=== PATIENT | female | born 1955 | race African-American/Black ===

== ENCOUNTER 2017-04-02 15:33 | Inpatient (IN) | payer BC ==
[~2017-04-02] VITALS: Ht 160 cm; Wt 92.1 kg
--- NOTE | ~2017-04-02 | EKG ---
[address] [address] ELECTROCARDIOGRAM REPORT Name: BARRETT DE LA VEGA Room #: 170-11 ADM IN .R.#: [id number] Admission: 04/02/17 Attend Phys: James Galvez MD Discharge: Date of : 55 Report #: [id number] THIS REPORT FOR: //name// [facility] ED Test Date: 2017-04-02 Test Time: 15:40:03 Pat Name: BARRETT DE LA VEGA Department: Room: 170 Gender: F Residential Treatment Counselor: MZOOK : 1955 Requested By: Randall Torres Order Number: [id number] MD: Jose Elias Richey Measurements Intervals [place] Rate: 66 P: 40 ND: 176 QRS: 33 QRSD: 91 T: 45 QT: 452 QTc: 474 Interpretive Statements Sinus rhythm Borderline T abnormalities, anterior leads Compared to ECG 12/23/2013 21:14:34 Poor R-wave progression no longer present T-wave abnormality still present Electronically Signed On 04-02-2017 23:26:23 [employer] by Jose Elias Richey [email or web address] <ELECTRONICALLY SIGNED> By: Jose Elias Richey MD 04/02/17 [id number] Jose Elias Richey MD /EPI
[~2017-04-02 15:33] MED LIST: AROMASIN25 MG PO; CALCIUM 600 +1 EAC1 PO; CELEXA20 MG PO; CENTRUM SILVER1 EAC4 PO; COUMADIN 5 MG TA5 M1 PO; ENOXAPARIN80 MG/0.1 SUBQ; LISINOPRIL10 MG PO; LOPRESSOR50 PO; MAXZIDE-25 MG1 EACH PO; NORVASC10 MG PO; PERCOCET PO; PROTONIX40 M1 PO; TRAMADOL 50 MG50 MG PO; VITAMIN B-12500 MCG PO; VITAMIN D-32000 UNIT PO
[2017-04-02 15:43] VITALS: BP 114/72
[2017-04-02] MEDS ORDERED: ANTIVERT25 MG PO (15:54)
[2017-04-02] MEDS ORDERED: DYAZIDE 37.5-21 EACH PO (15:55)
[2017-04-02] MEDS ORDERED: XANAX 0.25 MG0.25 MG PO (15:56)
[2017-04-02 16:11] LABS: HEMATOCRIT 38.4 % (37.0-47.0); MCH 28.8 pg (26.0-34.0); MCHC 33.8 g/dL (28.0-37.0); MCV 85.1 fL (80.0-100.0); PLATELET COUNT 253 thou/uL (150-400); RBC 4.51 mil/uL (4.20-5.00); RDW 14.8 % (10.5-14.5); WBC 6.3 thou/uL (4.0-11.0)
[2017-04-02 16:18] LABS: ANION GAP 8 mmol/L (7-16); BUN 13 mg/dL (7-18); CALCIUM 9.5 mg/dL (8.5-10.1); CHLORIDE 103 mmol/L (98-107); CO2 28 mmol/L (21-32); GLUCOSE 107 mg/dL (74-106); POTASSIUM 3.5 mmol/L (3.5-5.1); SODIUM 139 mmol/L (136-145)
[2017-04-02 16:27] LABS: TROPONIN-I < 0.04 ng/mL (<0.06)
[2017-04-02 16:29] LABS: ABSOLUTE NEUTROPHILS 3.6 thou/uL (1.4-8.2)
[2017-04-02 18:40] LABS: URINE BILIRUBIN NEGATIVE (Negative); URINE BLOOD NEGATIVE (Negative); URINE CLARITY CLEAR; URINE COLOR YELLOW; URINE GLUCOSE-RANDOM* NEGATIVE (Negative); URINE KETONES NEGATIVE (Negative); URINE LEUKOCYTES-REFLEX NEGATIVE (Negative); URINE NITRITE-REFLEX NEGATIVE (Negative); URINE PROTEIN (DIPSTICK) NEGATIVE (Negative); URINE UROBILINOGEN 0.2 E.U./dl (0.2-1.0)
[2017-04-02] MEDS ORDERED: HYDROCODONE-AP1 EAC6 PO (19:25)
[2017-04-02] MEDS ORDERED: NORFLEX100 MG PO (19:25)
[2017-04-02] MEDS ORDERED: SENNA-DOCUSATE1 EACH PO (19:25)
[2017-04-03 00:05] LABS: INR 4.3; PROTIME 42.7 Seconds (9.3-11.4)
[2017-04-03 11:40] VITALS: BP 94/60
[2017-04-03 12:00] VITALS: BP 90/61
[2017-04-03 12:18] VITALS: BP 96/42
[2017-04-03 16:00] VITALS: BP 114/76
[2017-04-03 20:00] VITALS: BP 106/67
[2017-04-04 04:06] VITALS: BP 99/64
[2017-04-04 06:37] LABS: HEMATOCRIT 35.4 % (37.0-47.0); HEMOGLOBIN 11.8 gm/dL (12.0-15.0); MCH 28.5 pg (26.0-34.0); MCHC 33.2 g/dL (28.0-37.0); MCV 85.7 fL (80.0-100.0); PLATELET COUNT 227 thou/uL (150-400); RBC 4.13 mil/uL (4.20-5.00); RDW 14.7 % (10.5-14.5); WBC 5.2 thou/uL (4.0-11.0)
[2017-04-04 06:47] LABS: CALCIUM 9.3 mg/dL (8.5-10.1); CREATININE 1.5 mg/dL (0.6-1.0); POTASSIUM 3.7 mmol/L (3.5-5.1)
[2017-04-04 07:30] VITALS: BP 87/50
[2017-04-04 07:44] LABS: ABSOLUTE NEUTROPHILS 2.1 thou/uL (1.4-8.2); ANISOCYTOSIS 1+
[2017-04-04 15:20] VITALS: BP 122/72
[2017-04-04 20:00] VITALS: BP 123/76
[2017-04-05] VITALS (8 sets, daily range): BP systolic 107–132; BP diastolic 74–82
== END 2017-04-05 21:30 | disposition home health service (06) | DRG 595 ==
LOC: ER 15:33 → 4E 21:09 → EROBS 21:09 → 4E 04-03 12:17
PROVIDERS: Emergency Medicine; Family Medicine; Nurse Practitioner Acute Care
DX: B02.9 Zoster without complications (principal); N17.0 Acute kidney failure with tubular necrosis; D68.59 Other primary thrombophilia; I10 Essential (primary) hypertension; Z96.643 Presence of artificial hip joint, bilateral; M19.90 Unspecified osteoarthritis, unspecified site; K21.9 Gastro-esophageal reflux disease without esophagitis; F32.9 Major depressive disorder, single episode, unspecified; Z90.49 Acquired absence of other specified parts of digestive tract; Z86.718 Personal history of other venous thrombosis and embolism; Z88.6 Allergy status to analgesic agent; Z88.1 Allergy status to other antibiotic agents; Z79.899 Other long term (current) drug therapy; Z79.01 Long term (current) use of anticoagulants
CPT/HCPCS: 10084